=== PATIENT | female | born 2000 | race Two or more races ===

== ENCOUNTER 2024-08-28 23:39 | Emergency (ER) | payer BC, OTHER ==
[~2024-08-28] VITALS: Ht 149.9 cm; Wt 80.3 kg
[2024-08-29] MEDS: FAMOTIDINE 20 MG TAB PO ONE (00:31)
[2024-08-29] MEDS: DexAMETHasone SOD PHOS 10MG/1ML VIAL INJ IM ONE (00:31)
[2024-08-29] MEDS: diphenhdrAMINE HCL 25 MG CAP PO ONE (00:31)
--- NOTE | 2024-08-29 00:31 | ED.PDOC ---
HPI Allergic reaction HPI Comments 24-year-old female who presents to the ED with allergic reaction. Patient states she had chips with hays peppers in it states she is allergic to hays peppers did not realize belt peppers was and a gradient. She states on Sunday symptoms started she was not sure what it was then recently had more of the chips and has increased in rash and itching. She does deny chest pain, difficulty breathing, shortness of breath, difficulty swallowing throat swelling tongue swelling nausea vomiting or chest pain. Chief Complaint: Allergic Reaction Time Seen by MD: 00:20 Reviewed Notes: Nurses Notes, Medications, Allergies Allergies: Coded Allergies: Soy Allergy (Verified Allergy, Severe, 08/29/24) Uncoded Allergies: HAYS PEPPER (Allergy, Severe, 08/29/24) NUTS (Allergy, Severe, 08/29/24) PET DANDER (Allergy, Severe, 08/29/24) Home Meds Active Scripts Famotidine (PEPCID TABLET) 20 Mg Tb, 1 TAB PO BID for 6 Days, #12 TAB Prov:FIGUEROA BAEZ BOWL TURNER 08/29/24 Methylprednisolone (Medrol Dosepak) 4 Mg Jacinto, 4 MG PO UD for 6 Days, #21 TAB UAD Prov:FIGUEROA BAEZ BOWL TURNER 08/29/24 Information Source: Patient Mode of Arrival: Ambulatory Past Medical History PAST MEDICAL HISTORY: Denies Surgical History: Denies all surgeries DOCUMENT MANAGEMENT ANALYST History: No Pertinent DOCUMENT MANAGEMENT ANALYST History Family History Family History: Reviewed,noncontributory to illness, No family hx of Cancer, No family hx of DM, No family hx of Heart marta, No family hx of HTN, No family hx ofKidney marta, No family hx of Liver marta, No family hx of Lung marta, No family hx of Stroke Social History Smoker: Non-Smoker Alcohol: Denies ETOH Use Drugs: Denies Drug Use Constitutional: denies: chills, diaphoresis, fatigue, fever, malaise, sweats, weakness, others EENTM: denies: blurred vision, double vision, ear bleeding, ear discharge, ear drainage, ear pain, ear ringing, eye pain, eye redness, hearing loss, mouth pain, mouth swelling, nasal discharge, nose bleeding, nose congestion, nose pain, photophobia, tearing, throat pain, throat swelling, voice changes, others Respiratory: denies: cough, hemoptysis, orthopnea, SOB at rest, shortness of breath, SOB with excertion, stridor, wheezing, others Cardiovascular: denies: chest pain, dizzy spells, diaphoresis, Dyspnea on exertion, edema, irregular heart beat, left arm pain, lightheadedness, palpitations, PND, syncope, others Gastrointestinal: denies: abdomen distended, abdominal pain, blood streaked bowels, constipated, diarrhea, dysphagia, difficulty swallowing, hematemesis, melena, nausea, poor appetite, poor fluid intake, rectal bleeding, rectal pain, vomiting, others Genitourinary: denies: abnormal vagina bleeding, burning, dyspareunia, dysuria, flank pain, frequency, hematuria, incontinence, pain, , vagina discharge, urgency, others Neurological: denies: dizziness, fainting, headache, left sided numbness, left sided weakness, numbness, paresthesia, pre-existing deficit, right sided numbness, right sided weakness, seizure, speech problems, tingling, tremors, weakness, others Musculoskeletal: denies: back pain, gout, joint pain, joint swelling, muscle pain, muscle stiffness, neck pain, others Integumetry: reports: rash (Bilateral arms); denies: bruises, change in color, change in hair/nails, dryness, laceration, lesions, lumps, wounds, others Allergic/Immunocompromised: denies: Difficulty Healing, Frequent Infections, Hives, Itching, others Hematologic/Lymphatic: denies: anemia, blood clots, easy bleeding, easy bruising, swollen glands, others Endocrine: denies: excessive hunger, excessive sweating, excessive thirst, excessive urination, flushing, intolerance to cold, intolerance to heat, unexplained weight gain, unexplained weight loss, others Psychiatric: denies: anxiety, bipolar disorder, depression, hopeless, panic disorder, schizophrenia, sleepless, suicidal, others Physical Exam General Appearance: No Apparent Distress, Normal HEENT: Normal ENT Inspection, Pharynx Normal, TMs Normal Neck: Full Range of Motion, Non-Tender Respiratory: Chest Non-Tender, Lungs Clear, No Accessory Muscle Use, No Respiratory Distress, Normal Breath Sounds Cardiovascular: No Edema, No JVD, No Murmur, No Gallop, Normal Peripheral Pulses, Regular Rate/Rhythm Breast Exam: Deferred Gastrointestinal: No Organomegaly, Non Tender, No Pulsatile Mass, Normal Bowel Sounds, Soft Genitalia: Deferred Pelvic: Deferred Rectal: Deferred Extremities: Normal capillary refill, Normal inspection, Normal range of motion, Non-tender, No pedal edema Musculoskeletal : Apperance: Normal Neurologic: Alert, No Motor Deficits, Normal Affect, Normal Mood, No Sensory Deficits Cerebellar Function: Normal Reflexes: Normal Skin: Dry, Normal Color, Rash (Urticarial rash on bilateral arms no noted excoriations or open lesions), Warm Lymphatic: No Adenopathy Was a procedure done? Was a procedure done?: No Differential diagnosis (all) Differential Diagnosis: Anaphylaxis, Angioedema, Bronchospasm, Respiratory F ailure, Shock X-Ray, Labs, Meds, VS Vital Signs Date Time Temp Pulse Resp B/P (MAP) Pulse Ox O2 Delivery O2 Flow Rate FiO2 08/29/24 00:42 98 17 98 Room Air* 0 21 08/29/24 00:40 99.6 98 17 133/92 (106) 98 99.6 08/29/24 00:22 99.6 104 17 133/92 (106) 98 99.6 08/29/24 00:22 17 98 Room Air* 0 21 Current Medications Medications (Trade) Dose Ordered Sig/Caron Route Start Time Stop Time Status Last Admin Famotidine (Pepcid Tablet) 40 mg ONCE ONCE PO 08/29/24 00:20 08/29/24 00:22 DC 08/29/24 00:31 Dexamethasone Sodium Phosphate (Decadron Injection) 10 mg ONCE ONCE IM 08/29/24 00:20 08/29/24 00:22 DC 08/29/24 00:31 Diphenhydramine HCl (Benadryl Capsule) 25 mg ONCE ONCE PO 08/29/24 00:20 08/29/24 00:22 DC 08/29/24 00:31 X-Ray, Labs, Meds, VS Comment Patient given Decadron 10 mg IM and Pepcid 40 mg p.o. reports improvement in symptoms requesting discharge at this time. We will script trial of Medrol Dosepak and Pepcid x6 days. Advised to rest increase p.o. fluids with electrolytes. Advised her to avoid those potato chips or any products containing hays peppers. Advised her to follow up with her PCP in 2-3 days as necessary ER return precautions given patient indicates understanding and agrees with discharge plan of care Time of 1ST Reevaluation: 00:30 Reevaluation 1ST: Improved Patient Education/Counseling: Diagnosis, Treatment, Prognosis, Need For Follow Up Family Education/Counseling: Diagnosis, Treatment, Prognosis, Need For Follow Up Departure 1 Departure Time of Disposition: 00:30 Impression: Primary Impression: Allergic reaction Qualified Codes: T78.40XA - Allergy, unspecified, initial encounter Disposition: HOME / SELF CARE / HOMELESS Condition: Stable e-Prescriptions Famotidine (PEPCID TABLET) 20 Mg Tb 1 TAB PO BID for 6 Days, #12 TAB Prov: FIGUEROA BAEZ 08/29/24 Methylprednisolone (Medrol Dosepak) 4 Mg Jacinto 4 MG PO UD for 6 Days, #21 TAB UAD Prov: FIGUEROA BAEZ 08/29/24 Discharged With: Significant Other Critical Care Note Critical Care Time?: No Stability Stability form required: FIGUEROA Bell Aug 29, 2024 00:31
[2024-08-29] MEDS ORDERED: METH4PAK PO (00:36)
[2024-08-29] MEDS ORDERED: FAMO20TA10 PO (00:36)
[2024-08-29 00:40] VITALS: BP 133/92; TEMP 99.6
[2024-08-29 00:42] VITALS: PULSE 98; RESP 17; O2SAT 98
== END 2024-08-29 00:40 | disposition home or self-care (01) ==
LOC: ER 23:39
DX: T78.40XA Allergy, unspecified, initial encounter (principal); X58.XXXA Exposure to other specified factors, initial encounter
CPT/HCPCS: 96372; 99283; J1100

== ENCOUNTER 2024-09-14 09:34 | Emergency (ER) | payer BC, MEDICAID ==
[~2024-09-14] VITALS: Ht 149.9 cm; Wt 78.1 kg
--- NOTE | 2024-09-14 09:56 | ED.PDOC ---
SOB-HPI HPI Comments 24 year old female presents to the ED with a chief complaint of shortness of breath onset 2 days. Patient states she has been experiencing shortness of breath, cough, nasal congestion for the past 2 days. Denies any PMHx as well as chest pain, dizziness, headache,fevers, chills, nausea, vomiting, diarrhea, dysuria. No other symptoms or modifying factors present at this time. Time Seen by MD: 09:50 Reviewed notes: Medications, Allergies Information Source: Patient Mode of Arrival: Ambulatory Severity: Moderate Timing: Days Duration: Since onset Context: At Rest PE Risk Factors: None History of: None Prehospital treatment: Other Modifying Factors: Nothing Associated Signs and Symptoms: Cough, Nasal Congestion If cough with SOB: Non-Productive Past Medical History PAST MEDICAL HISTORY: Denies Surgical History: Denies all surgeries APPRENTICESHIP TRAINING REPRESENTATIVE History: No Pertinent APPRENTICESHIP TRAINING REPRESENTATIVE History Family History Family History: Reviewed,noncontributory to illness, No family hx of Cancer, No family hx of DM, No family hx of Heart marta, No family hx of HTN, No family hx ofKidney marta, No family hx of Liver marta, No family hx of Lung marta, No family hx of Stroke Social History Smoker: Non-Smoker Alcohol: Denies ETOH Use Drugs: Denies Drug Use Lives In: Home Constitutional: denies: chills, diaphoresis, fatigue, fever, malaise, sweats, weakness, others EENTM: reports: nose congestion; denies: blurred vision, double vision, ear bleeding, ear discharge, ear drainage, ear pain, ear ringing, eye pain, eye redness, hearing loss, mouth pain, mouth swelling, nasal discharge, nose bleeding, nose pain, photophobia, tearing, throat pain, throat swelling, voice changes, others Respiratory: reports: cough, shortness of breath; denies: hemoptysis, orthopnea, SOB at rest, SOB with excertion, stridor, wheezing, others Cardiovascular: denies: chest pain, dizzy spells, diaphoresis, Dyspnea on exertion, edema, irregular heart beat, left arm pain, lightheadedness, palpitations, PND, syncope, others Gastrointestinal: denies: abdomen distended, abdominal pain, blood streaked bowels, constipated, diarrhea, dysphagia, difficulty swallowing, hematemesis, melena, nausea, poor appetite, poor fluid intake, rectal bleeding, rectal pain, vomiting, others Genitourinary: denies: abnormal vagina bleeding, burning, dyspareunia, dysuria, flank pain, frequency, hematuria, incontinence, pain, , vagina discharge, urgency, others Neurological: denies: dizziness, fainting, headache, left sided numbness, left sided weakness, numbness, paresthesia, pre-existing deficit, right sided n umbness, right sided weakness, seizure, speech problems, tingling, tremors, weakness, others Musculoskeletal: denies: back pain, gout, joint pain, joint swelling, muscle pain, muscle stiffness, neck pain, others Integumetry: denies: bruises, change in color, change in hair/nails, dryness, laceration, lesions, lumps, rash, wounds, others Allergic/Immunocompromised: denies: Difficulty Healing, Frequent Infections, Hives, Itching, others Hematologic/Lymphatic: denies: anemia, blood clots, easy bleeding, easy bruising, swollen glands, others Endocrine: denies: excessive hunger, excessive sweating, excessive thirst, excessive urination, flushing, intolerance to cold, intolerance to heat, unexplained weight gain, unexplained weight loss, others Psychiatric: denies: anxiety, bipolar disorder, depression, hopeless, panic disorder, schizophrenia, sleepless, suicidal, others All Other Systems: Reviewed and Negative Physical Exam General Appearance: No Apparent Distress, Normal HEENT: Normal ENT Inspection, Pharynx Normal, TMs Normal Neck: Full Range of Motion, Non-Tender, Normal, Normal Inspection Respiratory: Chest Non-Tender, Lungs Clear, No Accessory Muscle Use, No Respiratory Distress, Normal Breath Sounds Cardiovascular: No Edema, No JVD, No Murmur, No Gallop, Normal Peripheral Pulses, Regular Rate/Rhythm Breast Exam: Deferred Gastrointestinal: No Organomegaly, Non Tender, No Pulsatile Mass, Normal Bowel Sounds, Soft Genitalia: Deferred Pelvic: Deferred Rectal: Deferred Extremities: No calf tenderness, Normal capillary refill, Normal inspection, Normal range of motion, Non-tender, No pedal edema Musculoskeletal : Apperance: Normal Neurologic: Alert, school bus driver/custodian II-XII nml as Tested, No Motor Deficits, Normal Affect, Normal Mood, No Sensory Deficits Cerebellar Function: Normal Reflexes: Normal Skin: Dry, Normal Color, Warm Lymphatic: No Adenopathy Was a procedure done? Was a procedure done?: No Differential Dx Differential Diagnosis: Anxiety, Asthma, Bronchitis, Panic Attack, Pneumonia, URI Time of 1ST Reevaluation: 10:20 Reevaluation 1ST: Unchanged Patient Education/Counseling: Diagnosis, Treatment, Prognosis, Need For Follow Up Family Education/Counseling: No Family Present Comments this is a well appearing pt with normal VSS, normal exam, symptoms of an URI. i will start her on tesselon for cough, clritinD for decongestion Departure 1 Departure Time of Disposition: 09:59 Impression: Primary Impression: URI (upper respiratory infection) Disposition: HOME / SELF CARE / HOMELESS Condition: Good e-Prescriptions Loratadine & Pseudoephedrine (Claritin-D 24 Hour 10-240 mg) 1 Tab Tab 1 TAB PO DAILY PRN, #10 TAB Prov: SONAL PRADO MD 09/14/24 Benzonatate (Benzonatate) 200 Mg Cap 1 CAP PO TID, #30 CAP Prov: SONAL PRADO MD 09/14/24 Discharged With: Self Critical Care Note Critical Care Time?: No Stability Stability form required: No Heart Score Heart Score: Heart Score Response (Comments) Value History N/A 0 EKG N/A 0 Age N/A 0 Risk Factors N/A 0 Troponin N/A 0 Total 0 I personally scribed for SONAL PRADO MD ([email or web address]) on 09/14/24 at 09:56. Electronically submitted by Gwen Figueroa ([email or web address]). SONAL PRADO MD Sep 14, 2024 09:56
[2024-09-14] MEDS ORDERED: BENZ200C64 PO (09:59)
[2024-09-14] MEDS ORDERED: LORA-1130 PO (10:00)
[2024-09-14 11:15] VITALS: BP 111/72; PULSE 69; RESP 18; TEMP 97.5; O2SAT 98
== END 2024-09-14 11:22 | disposition home or self-care (01) ==
LOC: ER 09:34
DX: J06.9 Acute upper respiratory infection, unspecified (principal)

== ENCOUNTER 2024-10-20 06:04 | Outpatient (CLI) | payer BC, MEDICAID ==
[~2024-10-20 06:04] MED LIST: BENZ200C64 PO; LORA-1130 PO
== END 2024-10-20 17:00 | disposition home or self-care (01) ==
LOC: LAB 06:04
DX: N39.0 Urinary tract infection, site not specified (principal)
CPT/HCPCS: 87086

== ENCOUNTER 2024-11-30 23:12 | Emergency (ER) | payer BC, MEDICAID ==
[~2024-11-30] VITALS: Ht 149.9 cm; Wt 79.9 kg
[2024-12-01] MEDS ORDERED: BACDST PO (00:26)
[2024-12-01] MEDS ORDERED: MUPI2CRE17 EX (00:26)
--- NOTE | 2024-12-01 00:33 | ED.PDOC ---
History of Present Illness HPI Comments 24 y/o F presents with c/c red patches to her right and left thigh and right sandoval. Endorsement of 2x day history following unprovoked and sudden onset. No relief with [id number] Benadryl and topical cortisone ointment medications. Denial of any itchiness, pain, or further associated symptoms. Chief Complaint: Rash Time Seen by MD: 00:20 Reviewed Notes: Nurses Notes, Medications, Allergies Allergies: Coded Allergies: Soy Allergy (Verified Allergy, Severe, 08/29/24) Uncoded Allergies: HAYS PEPPER (Allergy, Severe, 08/29/24) NUTS (Allergy, Severe, 08/29/24) PET DANDER (Allergy, Severe, 08/29/24) Home Meds Active Scripts Mupirocin Calcium (Topical) (MUPIROCIN) 2 % Cre, 2 % EX BID for 10 Days, #30 CRE Prov:MARIA CARRILLO MD 12/01/24 Sulfamethoxazole W/Trimethopri (Bactrim Ds Tablet) 1 Tab Tb, 1 TAB PO BID for 7 Days, #14 TAB Prov:MARIA CARRILLO MD 12/01/24 Loratadine & Pseudoephedrine (Claritin-D 24 Hour 10-240 mg) 1 Tab Tab, 1 TAB PO DAILY PRN, #10 TAB Prov:SONAL PRADO MD 09/14/24 Benzonatate (Benzonatate) 200 Mg Cap, 1 CAP PO TID, #30 CAP Prov:SONAL PRADO MD 09/14/24 Information Source: Patient Mode of Arrival: Ambulatory Past Medical History PAST MEDICAL HISTORY: Denies Surgical History: Denies all surgeries OYSTER SHUCKER History: No Pertinent OYSTER SHUCKER History Family History Family History: Reviewed,noncontributory to illness, No family hx of Cancer, No family hx of DM, No family hx of Heart marta, No family hx of HTN, No family hx ofKidney marta, No family hx of Liver marta, No family hx of Lung marta, No family hx of Stroke Social History Smoker: Non-Smoker Alcohol: Denies ETOH Use Drugs: Denies Drug Use Lives In: Home All Other Systems: Reviewed and Negative (as per HPI) Physical Exam General Appearance: No Apparent Distress, Obese HEENT: Normal ENT Inspection, Pharynx Normal, TMs Normal Neck: Full Range of Motion, Non-Tender, Normal, Normal Inspection Respiratory: Chest Non-Tender, Lungs Clear, No Accessory Muscle Use, No Respiratory Distress, Normal Breath Sounds Cardiovascular: No Edema, No JVD, No Murmur, No Gallop, Normal Peripheral Pulses, Regular Rate/Rhythm Breast Exam: Deferred Gastrointestinal: No Organomegaly, Non Tender, No Pulsatile Mass, Normal Bowel Sounds, Soft Genitalia: Deferred Pelvic: Deferred Rectal: Deferred Extremities: No calf tenderness, Normal capillary refill, Normal range of motion, Non-tender, No pedal edema, Other (right anterior thigh 5cm diameter erythema ) Musculoskeletal : Apperance: Normal Neurologic: Alert, felt coverer II-XII nml as Tested, No Motor Deficits, Normal Affect, Normal Mood, No Sensory Deficits Cerebellar Function: Normal Reflexes: Normal Skin: Dry, Normal Color, Warm, Other (right anterior thigh 5cm diameter erythema ) Lymphatic: No Adenopathy Was a procedure done? Was a procedure done?: No Differential Dx Considerations may include: cellulitis, dermatitis, among others X-Ray, Labs, Meds, VS Vital Signs Date Time Temp Pulse Resp B/P (MAP) Pulse Ox O2 Delivery O2 Flow Rate FiO2 12/01/24 01:25 98.7 75 17 125/83 (97) 99 98.7 12/01/24 01:25 75 17 99 Room Air 11/30/24 23:13 99.1 95 16 141/94 100 99.1 Current Medications Medications (Trade) Dose Ordered Sig/Caron Route Start Time Stop Time Status Last Admin Trimethoprim/ Sulfamethoxazole (Bactrim Ds Tablet) 1 tab ONCE ONCE PO 12/01/24 00:30 12/01/24 00:31 DC 12/01/24 01:25 Time of 1ST Reevaluation: 00:50 Reevaluation 1ST: Unchanged Patient Education/Counseling: Diagnosis, Treatment, Need For Follow Up Family Education/Counseling: No Family Present SEPSIS Sepsis Screen Date sepsis recognized/suspect: Nov 30, 2024 Time Sepsis recognized/suspect: 2312 Recent Procedure: No On Antibiotic Therapy: No Respiratory Rate >20: No Heart Rate >90: No Temp<36 C (96.8 F) or >38.3 C: No SBP <90 or MAP <65 mmHG: No New Acute Mental Status Change: No Is the patient on CPAP, BIPAP,: No Vital Signs Date Time Temp Pulse Resp B/P (MAP) Pulse Ox O2 Delivery O2 Flow Rate FiO2 12/01/24 01:25 98.7 75 17 125/83 (97) 99 98.7 12/01/24 01:25 75 17 99 Room Air 11/30/24 23:13 99.1 95 16 141/94 100 99.1 Medications Medications Dose Ordered Sig/Caron Route Start Time Stop Time Status Last Admin Dose Admin Trimethoprim/ Sulfamethoxazole 1 tab ONCE ONCE PO 12/01/24 00:30 12/01/24 00:31 DC 12/01/24 01:25 Departure 1 Departure Time of Disposition: 02:00 Impression: Primary Impression: Cellulitis of right thigh Disposition: HOME / SELF CARE / HOMELESS Condition: Stable Additional Instructions: Follow up with your primary physician Return to the Emergency Department for any worsening symptoms or concerns e-Prescriptions Mupirocin Calcium (Topical) (MUPIROCIN) 2 % Cre 2 % EX BID for 10 Days, #30 CRE Prov: MARIA CARRILLO MD 12/01/24 Sulfamethoxazole W/Trimethopri (Bactrim Ds Tablet) 1 Tab Tb 1 TAB PO BID for 7 Days, #14 TAB Prov: MARIA CARRILLO MD 12/01/24 Discharged With: Self Critical Care Note Critical Care Time?: No Stability Stability form required: No Heart Score Heart Score: Heart Score Response (Comments) Value History N/A 0 EKG N/A 0 Age N/A 0 Risk Factors N/A 0 Troponin N/A 0 Total 0 I personally scribed for MARIA CARRILLO MD ([email or web address]) on 12/01/24 at 00:33. Electronically submitted by Juan David Malone ([email or web address]). MARIA CARRILLO MD Dec 01, 2024 00:33
[2024-12-01 01:25] VITALS: BP 125/83; PULSE 75; RESP 17; TEMP 98.7; O2SAT 99
[2024-12-01] MEDS: SULFAMETHOX W/TRIMETH(800/160MG) DS TAB PO ONE (01:25)
== END 2024-12-01 01:25 | disposition home or self-care (01) ==
LOC: ER 23:12
DX: L03.115 Cellulitis of right lower limb (principal); Z91.018 Allergy to other foods; Z79.899 Other long term (current) drug therapy

== ENCOUNTER 2025-03-10 17:03 | Emergency (ER) | payer BC, MEDICAID ==
[~2025-03-10] VITALS: Ht 149.9 cm; Wt 79.0 kg
[~2025-03-10 17:03] MED LIST changes: +BACDST PO; +MUPI2CRE17 EX
[2025-03-10 17:45] VITALS: PULSE 90; RESP 20; O2SAT 98
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
[2025-03-10 18:54] LABS: Urine Protein, UAD Negative (Negative)
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
[2025-03-10 18:56] LABS: Hematocrit 42.6 % (36.0-46.0); Hemoglobin 14.2 g/dL (12.2-16.2); Mean Corpuscular Hemoglobin 30.6 pg (28.0-32.0); Mean Corpuscular Volume 91.9 fL (80.0-100.0); Nucleated Red Blood Cells % 0.1 %
[2025-03-10 19:00] VITALS: TEMP 98.6
[2025-03-10 19:14] LABS: Alanine Aminotransferase 21 U/L (7-40); Albumin 4.5 g/dL (3.2-4.8); Alkaline Phosphatase 82 U/L (46-116); Anion Gap 7 (5-15); BUN/Creatinine Ratio 8.5 (10.0-20.0); Calcium 9.5 mg/dL (8.7-10.4); Carbon Dioxide 29 mmol/L (20-31); Chloride 104 mmol/L (98-107); Glucose 96 mg/dL (74-106); Lipase 44 U/L (12-53); Potassium 4.1 mmol/L (3.5-5.1); Sodium 140 mmol/L (136-145); Total Protein 7.7 g/dL (5.7-8.2)
[2025-03-10 19:15] LABS: Bilirubin, Total 0.2 mg/dL (0.2-1.0); Blood Urea Nitrogen 8 mg/dL (9-23)
[2025-03-10 20:00] VITALS: PULSE 93; RESP 17; O2SAT 98
[2025-03-10 21:00] VITALS: BP 112/79; PULSE 71; RESP 13; O2SAT 98
== END 2025-03-10 21:06 | disposition home or self-care (01) ==
LOC: EEVIPCON 17:03 → ER 17:03
DX: S39.91XA Unspecified injury of abdomen, initial encounter (principal); Z79.899 Other long term (current) drug therapy; Z91.018 Allergy to other foods; V19.9XXA Pedal cyclist (driver) (passenger) injured in unspecified traffic accident, initial encounter; Y93.55 Activity, bike riding; Y92.89 Other specified places as the place of occurrence of the external cause; Y99.8 Other external cause status
CPT/HCPCS: 36415; 74176; 80053; 81001; 83690; 85025